=== PATIENT | female | born 1995 | race Caucasian/White ===

== ENCOUNTER 2019-04-09 18:30 | Emergency (ER) | payer MEDICAID ==
[2019-04-09] MEDS ORDERED: implanon (18:39)
--- NOTE | 2019-04-09 18:42 | ER Report ---
History and Physical Time Seen By MD: 18:39 Hx. of Stated Complaint: hemorrhoid started last tuesday, no relief with otc creams HPI/ROS CHIEF COMPLAINT: hemorrhoid pain HISTORY OF PRESENT ILLNESS: This is a 23 year old female. She has been treating a hemorrhoid for the last 6 days, worsening pain, no improvement with over the counter treatments, creams and pads. Very painful with movement and sitting. Seems larger. Allergies: Coded Allergies: No Known Drug Allergies (Unverified , 04/09/19) Home Meds Reported Medications [implanon] No Conflict Check 04/09/19 Reviewed Nurses Notes: Yes Constitutional Vital Sign - Last 24 Hours 04/09/19 04/09/19 04/09/19 18:34 18:45 19:00 Temp 98.4 Pulse 83 77 71 Resp 18 B/P (MAP) 129/91 121/99 (106) Pulse Ox 97 94 97 O2 Delivery Room Air Physical Exam The patient has a large thrombosed hemorrhoid at the 6 o'clock position of the anus. Tender to palpation. Some smaller uncomplicated hemorrhoids as well. Medical Decision Making ED Course/Re-evaluation ED Course Procedure: Evacuation of thrombosed external hemorrhoid. The patient has a painful thrombosed external hemorrhoid. Based on the patient's significant pain from hemorrhoid we elected to evacuate the thrombosis. I informed the patient of potential complications including infection and bleeding and the patient agreed to the procedure. The patient was placed on their side. The area was prepped with betadyne and anesthetized with lidocaine and epinephrine. An incision was made in the thrombosed hemorrhoid and the thrombosis was evacuated. A dressing was applied. There were no complications. The procedure was performed by myself. Decision to Disposition Date: Apr 09, 2019 Decision to Disposition Time: 19:03 Depart Departure Latest Vital Signs Vital Signs Date Time Temp Pulse Resp B/P (MAP) Pulse Ox O2 Delivery O2 Flow Rate FiO2 04/09/19 19:00 71 121/99 (106) 97 04/09/19 18:34 98.4 18 Room Air Impression: Primary Impression: Thrombosed hemorrhoids Condition: Improved Disposition: HOME OR SELF-CARE Patient Instructions: Thrombosed Hemorrhoid (ED) Additional Instructions: You can keep using hemorrhoid creams or wipes 2-3 times a day. Soaks in warm water in the tub 2-3 times a day, especially after bowel movements. RODOLFO PARMAR MD Apr 09, 2019 18:42
[2019-04-09 19:00] VITALS: BP 121/99
== END 2019-04-09 19:24 | disposition home or self-care (01) ==
LOC: ER 18:48
DX: K64.5 Perianal venous thrombosis (principal)
CPT/HCPCS: 99282